=== PATIENT | female | born 1980 | race Caucasian/White ===

== ENCOUNTER → 2021-01-20 | Outpatient (CLI) | payer BC ==
[~2021-01-20] MED LIST: ALBU90OI INH; ALBU90OI61 INH; ASPI81CH PO; BCP'S; CITA20 PO; CYCL10 PO; DIGO.125 PO; FURO20; HYDACE5 PO; IBUP800 PO; METO50 PO; MONT10T PO; MULT50FEL PO; NAPR550 PO; OXYACE5T PO; OXYC5; PENVK500 PO; POTCHL20ER; RXCYCL10 PO; RXNAPNA550 PO; RXOXYACE PO; SENN187 PO; Singulair10 MG; TRAM50 PO; WARF2.5 PO
[2021-01-20 18:21] LABS: Adenovirus F 40/41 Not Detected (NOT DETECT); Astrovirus Not Detected (NOT DETECT); Campylobacter Sp Not Detected (NOT DETECT); Cryptosporidium Not Detected (NOT DETECT); Cyclospora Cayetanensis Not Detected (NOT DETECT); E. Coli O157 Not Detected (NOT DETECT); Entamoeba Histolytica Not Detected (NOT DETECT); Enteroaggregative E. coli-EAEC Not Detected (NOT DETECT); Enteropathogenic E. coli-EPEC Not Detected (NOT DETECT); Enterotoxigenic E. coli-ETEC Not Detected (NOT DETECT); Giardia Lamblia Not Detected (NOT DETECT); Norovirus GI/GII Not Detected (NOT DETECT); Plesiomonas Shigelloides Not Detected (NOT DETECT); Rotavirus A Not Detected (NOT DETECT); Salmonella Sp Not Detected (NOT DETECT); Sapovirus Not Detected (NOT DETECT); Shiga Toxin-prod E. coli-STEC Not Detected (NOT DETECT); Shigella/Enteroin E. coli-EIEC Not Detected (NOT DETECT); Vibrio Cholerae Not Detected (NOT DETECT); Vibrio Sp Not Detected (NOT DETECT); Yersinia Enterocolitica Not Detected (NOT DETECT)
== END | disposition home or self-care (01) ==
LOC: LAB 13:18 → LAB SHORT 13:18
PROVIDERS: Physician Assistant
DX: R19.7 Diarrhea, unspecified (principal)
CPT/HCPCS: 0097U

== ENCOUNTER 2022-10-16 15:36 | Inpatient (IN) | payer OTHER ==
[~2022-10-16] VITALS: Ht 157.5 cm; Wt 114.4 kg
[~2022-10-16 15:36] MED LIST changes: -ALBU90OI61 INH; +METO100 PO; -METO50 PO; -Singulair10 MG
[2022-10-16 16:31] LABS: BASOPHILS ABSOLUTE AUTO 0.04 K/mm3 (0.00-0.23); BASOPHILS PERCENT AUTO 0 % (0-2); EOSINOPHILS ABSOLUTE AUTO 0.14 K/mm3 (0.00-0.68); EOSINOPHILS PERCENT AUTO 1 % (0-6); Hemoglobin 13.1 g/dL (11.5-16.0); IMMATURE GRAN ABSOLUTE AUTO 0.04 K/mm3 (0.00-0.10); IMMATURE GRAN PERCENT AUTO 0 % (0-1); LYMPHOCYTES ABSOLUTE AUTO 1.95 K/mm3 (0.84-5.20); LYMPHOCYTES PERCENT AUTO 19 % (21-46); MONOCYTES ABSOLUTE AUTO 0.38 K/mm3 (0.16-1.47); MONOCYTES PERCENT AUTO 4 % (4-13); Mean Corpuscular HGB 29.7 pg (26.0-34.0); Mean Corpuscular HGB Conc 33.6 g/dL (31.5-36.5); Mean Corpuscular Volume 88 fL (80-100); Mean Platelet Volume 10.4 fL (9.1-12.4); NEUTROPHILS ABSOLUTE AUTO 7.68 K/mm3 (1.96-9.15); NEUTROPHILS PERCENT AUTO 75 % (41-73); Platelet Count 298 K/mm3 (150-400); RDW Coefficient Variation 14.5 % (11.7-14.2); RDW Standard Deviation 46.8 fL (35.1-46.3); Red Blood Cell Count 4.41 M/mm3 (3.80-5.20); White Blood Cell Count 10.23 K/mm3 (4.00-11.30)
[2022-10-16 16:52] LABS: Albumin, Blood 3.6 g/dL (3.4-5.0); Albumin/Globulin Ratio 0.9 (0.8-1.8); Bilirubin, Total 0.3 mg/dL (0.1-1.0); Bun/Creatinine Ratio 17.9 (12.0-20.0); Calcium, Blood 9.2 mg/dL (8.5-10.1); Creatinine, Blood 1.12 mg/dL (0.40-1.00); Globulin, Blood 3.9 g/dL (2.2-4.0); Total Protein, Blood 7.5 g/dL (6.4-8.2)
[2022-10-16] MEDS ORDERED: LOSARTAN POTAS100 M1 PO (17:30)
[2022-10-16] MEDS ORDERED: ZOLOFT50 MG PO (21:36)
[2022-10-16 22:14] LABS: Anti-Xa UFH, PHA Monitoring <0.10 IU/mL; International Normalized Ratio 0.99; Prothrombin Time Results 10.4 Sec (9.7-11.5)
[2022-10-16 23:15] VITALS: BP 113/71
[2022-10-16] MEDS ORDERED: Aspir 8181 MG PO (23:51)
[2022-10-16] MEDS ORDERED: MULVITA PO (23:52)
[2022-10-16 23:56] VITALS: BP 106/82
[2022-10-17] VITALS (16 sets, daily range): BP systolic 91–122; BP diastolic 49–83
--- NOTE | 2022-10-17 01:41 | NUR ---
Assumed care of pt at 2310 as an ER admit. SVT on tele 160-180. CP described as sharp 07/13. BP began getting soft with SBP 90-100. Attempted valsalva maneuver and dive reflex with no success. Resident in room and attempted carotid massage, also with no success. Adenosine 6mg ordered and administered at 0108, patient converted to NSR in the 80's. Patient's MAP in high 70's now, and patient is resting.
[2022-10-17 02:09] LABS: BASOPHILS ABSOLUTE AUTO 0.03 K/mm3 (0.00-0.23); BASOPHILS PERCENT AUTO 0 % (0-2); EOSINOPHILS ABSOLUTE AUTO 0.16 K/mm3 (0.00-0.68); EOSINOPHILS PERCENT AUTO 2 % (0-6); Hematocrit 34.5 % (33.0-51.0); Hemoglobin 11.4 g/dL (11.5-16.0); IMMATURE GRAN ABSOLUTE AUTO 0.04 K/mm3 (0.00-0.10); IMMATURE GRAN PERCENT AUTO 0 % (0-1); LYMPHOCYTES PERCENT AUTO 23 % (21-46); MONOCYTES ABSOLUTE AUTO 0.54 K/mm3 (0.16-1.47); MONOCYTES PERCENT AUTO 5 % (4-13); Mean Corpuscular HGB 29.1 pg (26.0-34.0); Mean Corpuscular Volume 88 fL (80-100); Mean Platelet Volume 10.1 fL (9.1-12.4); NEUTROPHILS ABSOLUTE AUTO 7.43 K/mm3 (1.96-9.15); NEUTROPHILS PERCENT AUTO 69 % (41-73); Platelet Count 258 K/mm3 (150-400); RDW Coefficient Variation 14.4 % (11.7-14.2); RDW Standard Deviation 46.3 fL (35.1-46.3); Red Blood Cell Count 3.92 M/mm3 (3.80-5.20)
[2022-10-17 02:27] LABS: Alanine Aminotransfer (ALT/SGP 16 U/L (12-78); Albumin, Blood 3.2 g/dL (3.4-5.0); Albumin/Globulin Ratio 0.9 (0.8-1.8); Alk Phos 63 U/L (50-136); Anion Gap 4 mmol/L (6-16); Aspartate Aminotrans (AST/SGOT 14 U/L (12-37); Bilirubin, Total 0.6 mg/dL (0.1-1.0); Blood Urea Nitrogen 21 mg/dL (8-24); CHOL/HDL RATIO 3.7; CO2, Blood 24 mmol/L (21-32); Calcium, Blood 8.9 mg/dL (8.5-10.1); Chloride, Blood 109 mmol/L (98-108); Cholesterol 112 mg/dL (50-200); Globulin, Blood 3.7 g/dL (2.2-4.0); Glomerular Filtration Rate 72 (60-); Glucose, Blood 143 mg/dL (70-99); HDL Cholesterol 30 mg/dL (>39); Low Density Lipoprotein Chol 59 mg/dL (0-110); Potassium, Blood 3.4 mmol/L (3.5-5.5); Sodium, Blood 137 mmol/L (136-145); Total Protein, Blood 6.9 g/dL (6.4-8.2); Triglycerides 113 mg/dL (30-160); Very Low Density Lipoprot Chol 22 mg/dL (6-32)
--- NOTE | 2022-10-17 02:51 | NUR ---
Patient returned into SVT rhythm in 140's with soft BP's. Called resident and order for 6mg Adenosine again, given and patient returned into SR in 70's with stable BP.
[2022-10-17 03:23] LABS: Magnesium, Blood 1.7 mg/dL (1.6-2.4)
--- NOTE | 2022-10-17 04:54 | NUR ---
Patient was able to get some sleep this shift. Patient had 1 medium loose brown watery BM that patient reports has been happening for awhile now. No other events this shift. VSS at this time. Will report to dayshift RN.
--- NOTE | 2022-10-17 09:00 | NUR ---
Am note Pt alert, oriented x4; calm and cooperative with care. Pt resting in bed, appears to be sleeping intermittently. Sba to bsc. Pt denies pain, chest pain/pressure, sob, nausea, dizziness and numb/tingling. Tele sinus kimberly 57-60's, bp stable. Spo2 >90% on ra, breathing even and unlabored. Abd soft, nontender, normoactive, pt reporting intermittent diarrhea. No edema noted. Other vss. No other acute changes noted. Will continue to monitor.
--- NOTE | 2022-10-17 17:22 | NUR ---
Shift Summary Pt had panic attack this afternoon, medicated per emar. Pt reports sharp intermittent chest pain, md aware, continue to monitor. Bp soft this evening, caregiver states that is baseline. Other vss. No other acute chagnes noted. Will continue to monitor.
--- NOTE | 2022-10-17 17:30 | NUR ---
Shift Summary Pt reporting sharp left side pain, notified MD, continue to monitor. Plans for stress test tomorrow, npo at midnight. No other acute chagnes noted. Will continue to monitor.
[2022-10-18] VITALS (8 sets, daily range): BP systolic 95–143; BP diastolic 49–79
[2022-10-18 03:28] LABS: BASOPHILS ABSOLUTE AUTO 0.05 K/mm3 (0.00-0.23); BASOPHILS PERCENT AUTO 1 % (0-2); EOSINOPHILS ABSOLUTE AUTO 0.22 K/mm3 (0.00-0.68); EOSINOPHILS PERCENT AUTO 2 % (0-6); Hematocrit 33.1 % (33.0-51.0); Hemoglobin 10.7 g/dL (11.5-16.0); IMMATURE GRAN ABSOLUTE AUTO 0.03 K/mm3 (0.00-0.10); IMMATURE GRAN PERCENT AUTO 0 % (0-1); LYMPHOCYTES ABSOLUTE AUTO 2.39 K/mm3 (0.84-5.20); LYMPHOCYTES PERCENT AUTO 25 % (21-46); MONOCYTES ABSOLUTE AUTO 0.46 K/mm3 (0.16-1.47); MONOCYTES PERCENT AUTO 5 % (4-13); Mean Corpuscular HGB Conc 32.3 g/dL (31.5-36.5); Mean Corpuscular Volume 90 fL (80-100); NEUTROPHILS ABSOLUTE AUTO 6.61 K/mm3 (1.96-9.15); NEUTROPHILS PERCENT AUTO 68 % (41-73); Platelet Count 246 K/mm3 (150-400); RDW Coefficient Variation 14.3 % (11.7-14.2); RDW Standard Deviation 47.1 fL (35.1-46.3); Red Blood Cell Count 3.69 M/mm3 (3.80-5.20); White Blood Cell Count 9.76 K/mm3 (4.00-11.30)
[2022-10-18 03:44] LABS: Albumin, Blood 3.1 g/dL (3.4-5.0); Albumin/Globulin Ratio 0.9 (0.8-1.8); Bilirubin, Total 0.5 mg/dL (0.1-1.0); Bun/Creatinine Ratio 28.2 (12.0-20.0); Calcium, Blood 8.5 mg/dL (8.5-10.1); Creatinine, Blood 0.85 mg/dL (0.40-1.00); Globulin, Blood 3.6 g/dL (2.2-4.0); Total Protein, Blood 6.7 g/dL (6.4-8.2)
--- NOTE | 2022-10-18 04:47 | NUR ---
SHIFT SUMMARY PT IS A/Ox4 AND IS COOPERATIVE WITH CARE PROVIDED BY MEMBERS OF STAFF. ANSWERS QUESTIONS APPROPRIATELY AMD ABLE TO MAKE HER NEEDS KNOWN. NO ACUTE EVENTS OVERNIGHT FOR PT WAS ABLE TO SLEEP T/O MOST OF THE SHIFT. REMAINED IN SR WITH HR RANGING IN 60-70'S AT REST, BUT DOES CLIMB INTO 90'S WITH ABULATION. NO EPISODES OF SVT DURING MY SHIFT OF THIS NOTE. NO REPORTS OF CP OR PRESSURE REPORTED. MAINTAINS SPO2 >92% ON RA WITH NO SOB OR DYSPNEA REPORTED. ABLE TO AMBULATE TO BS TO VOID. HAS BEEN NPO SINCE MDN FOR SECOND PORTION OF STRESS TEST THIS AM. NO NEW ORDERS AT THIS TIME, WILL REPORT TO DAYSLAMURIEL RN. ELROY NORMAN T/O THE SHIFT
--- NOTE | 2022-10-18 08:25 | NUR ---
AM NOTE PT RESTING IN ROOM, HEPARIN VERIFIED WITH, PM NURSE, AND AM NURSE. PT'S HR ELEVATED UPON WAKING IN THE 130'S SINUS TACHYCARDIA PER [employer]. HR RETURNED TO NSR IN 70'S AFTER APPROXIMATELY 20 MINUTES. PT DENIES CP, SOB, DIZZINESS, NAUSEA. PT MEDICATED PER EMAR. WILL BE COMPLETING AN EXERCISE INDUCED STRESS TEST TIME 1300. PT DENIES ANY NEEDS AT THIS TIME.
--- NOTE | 2022-10-18 13:52 | NUR ---
PROGRESS PT TO IMAGING FOR STRESS TEST.
--- NOTE | 2022-10-18 16:42 | NUR ---
SHIFT SUMMARY PT REMAINS A&OX4. DENIES CP, SOB, DIZZINESS, AND NAUSEA. PT WILL RECIEVE THE SECOND PART OF THE STRESS TEST TOMORROW. VSS. DENIES FURTHER NEEDS AT THIS TIME, WILL CONTINUE TO MONITOR PT.
--- NOTE | 2022-10-18 18:46 | NUR ---
I have reviewed the nursing students documentation and am in agreement
[2022-10-19 04:16] VITALS: BP 142/88
[2022-10-19 04:37] LABS: Hematocrit 29.7 % (33.0-51.0); Mean Corpuscular HGB 29.6 pg (26.0-34.0); Mean Corpuscular HGB Conc 33.7 g/dL (31.5-36.5); Mean Corpuscular Volume 88 fL (80-100); Mean Platelet Volume 10.1 fL (9.1-12.4); Platelet Count 247 K/mm3 (150-400); RDW Coefficient Variation 14.2 % (11.7-14.2); RDW Standard Deviation 45.8 fL (35.1-46.3); Red Blood Cell Count 3.38 M/mm3 (3.80-5.20); White Blood Cell Count 10.63 K/mm3 (4.00-11.30)
[2022-10-19 05:18] LABS: Bun/Creatinine Ratio 23.1 (12.0-20.0); Calcium, Blood 8.6 mg/dL (8.5-10.1); Creatinine, Blood 0.87 mg/dL (0.40-1.00); Potassium, Blood 3.8 mmol/L (3.5-5.5)
[2022-10-19 07:54] VITALS: BP 134/86
--- NOTE | 2022-10-19 08:10 | NUR ---
SHIFT SUMMARY PT IS A/Ox4 AND COOPERATIVE WITH CARE PROVIDED BY MEMBERS OF STAFF. ANSWERS QUESTIONS APPROPRIATELY AND ABLE TO MAKE NEEDS KNOWN. NO ACUTE EVENTS OVER NIGHT FOR PT WAS ABLE T0 SLEEP T/O MOST OF THE SHIFT. MAINTAINS SPO2 >95% ON RA WITH NO SOB REPORTED. CARDIAC VAUGHN, REMAINS IN SR-ST WITH HR RANGING IN THE 80-100'S. SBP REMAINS STABLE T/O THE NIGHT. ABLE TO ABULATE TO BATHROOM WITH SBA. HEPARIN GTT RUNNING T/O THE NIGHT ORDERED VIA EMAR. PT TO CONDUCT SECOND PART OF STRESS TEST THIS AM, PT HAS BEEN NPO SINCE MDN. NO NEW ORDERS AT THIS TIME, WILL REPORT TO ONCOMING RN. ELROY NORMAN T/O THE SHIFT.
--- NOTE | 2022-10-19 10:43 | NUR ---
ASSUMPTION OF CARE: RECEIVED REPORT FROM JB FISHER RN AT APPROX. 0715. PT ALERT AND ORIENTED X4, ABLE TO ANSWER QUESTIONS APPROPRIATELY. PT HEPARIN GTT AT 21 U/KG/HR VERIFIED BY JB FISHER RN AND YASEMIN RN. PT LUNG SOUNDS CLEAR IN ALL LOBES. NO C/O CHEST PAIN OR PRESSURE. PT ABLE TO AMBULATE TO BATHROOM WITH MINIMAL ASSIST WITH NO C/O OF DIZZINESS OR LIGHTHEADNESS. PT VSS. PLAN FOR THE OTHER HALF OF STRESS TEST THIS AFTERNOON. WILL CONTINUE TO MONITOR T/O SHIFT. CALL LIGHT IN REACH, BED IN LOW POSITION.
[2022-10-19 11:19] VITALS: BP 118/66
[2022-10-19 16:04] VITALS: BP 119/60
--- NOTE | 2022-10-19 17:24 | NUR ---
SHIFT SUMMARY: PT WENT FOR THE OTHER HALF OF STRESS TEST THIS AFTERNOON. CARDIOLOGY CONSULT PLACED TO DR. HEALY AND REVIEWED STRESS TEST RESULT. METOPROLOL DOSE DECREASED TO 50 MG PER , DOSE GIVEN AT 1700. PT VITAL SIGNS STABLE WITH HR IN THE 60-70'S AND BP SYSTOLIC IN THE 110-120'S. OXYGEN CONTINUED TO STAY >94 T/O THE SHIFT ON ROOM AIR. NO C/O OF CHEST PAIN OR PRESSURE T/O THE SHIFT. ABLE TO AMBULATE TO THE BATHROOM INDEPENDENTLY WITH NO C/O DIZZINESS OR LIGHTHEADEDNESS. PLAN TO MONITOR THE PT OVERNIGHT WITH POSSIBLE D/C HOME TOMORROW. CALL LIGHT IN REACH, WILL CONTINUE TO MONITOR AND GIVE REPORT TO THE ONCOMING NOC RN.
--- NOTE | 2022-10-19 18:11 | NUR ---
THIS RN REVIEWED AGREED TO STUDENTS NOTES AND DOCUMENTION.
[2022-10-19 19:27] VITALS: BP 112/67
[2022-10-19 23:39] VITALS: BP 115/61
[2022-10-20 04:01] VITALS: BP 139/72
[2022-10-20 04:14] LABS: BASOPHILS ABSOLUTE AUTO 0.08 K/mm3 (0.00-0.23); BASOPHILS PERCENT AUTO 1 % (0-2); EOSINOPHILS ABSOLUTE AUTO 0.31 K/mm3 (0.00-0.68); EOSINOPHILS PERCENT AUTO 3 % (0-6); Hematocrit 29.7 % (33.0-51.0); Hemoglobin 9.8 g/dL (11.5-16.0); IMMATURE GRAN ABSOLUTE AUTO 0.05 K/mm3 (0.00-0.10); IMMATURE GRAN PERCENT AUTO 1 % (0-1); LYMPHOCYTES ABSOLUTE AUTO 2.64 K/mm3 (0.84-5.20); LYMPHOCYTES PERCENT AUTO 25 % (21-46); MONOCYTES PERCENT AUTO 5 % (4-13); Mean Corpuscular HGB 29.3 pg (26.0-34.0); Mean Corpuscular Volume 89 fL (80-100); Mean Platelet Volume 10.2 fL (9.1-12.4); NEUTROPHILS ABSOLUTE AUTO 7.21 K/mm3 (1.96-9.15); NEUTROPHILS PERCENT AUTO 67 % (41-73); Platelet Count 271 K/mm3 (150-400); RDW Coefficient Variation 14.3 % (11.7-14.2); RDW Standard Deviation 45.6 fL (35.1-46.3); Red Blood Cell Count 3.35 M/mm3 (3.80-5.20); White Blood Cell Count 10.79 K/mm3 (4.00-11.30)
[2022-10-20 04:30] LABS: Bun/Creatinine Ratio 21.9 (12.0-20.0); Calcium, Blood 8.5 mg/dL (8.5-10.1); Creatinine, Blood 0.87 mg/dL (0.40-1.00); Potassium, Blood 3.7 mmol/L (3.5-5.5)
--- NOTE | 2022-10-20 05:52 | NUR ---
SHIFT SUMMARY PT IS A/Ox4 AND COOPERATIVE WITH CARE PROVIDED BY MEMBERS OF STAFF. ANSWERS QUESTIONS APPROPRIATELY AND ABLE TO MAKE NEEDS KNOWN. NO ACUTE EVENTS OVERNIGHT FOR PT WAS ABLE TO SLEEP FOR MOST OF THE SHIFT. CARDIAC VAUGHN, NO C/O CP OR PRESSURE T/O THE NIGHT. REMAINED SR WITH HR RANGING IN THE 60-80'S. HR CAN CLIMB TO 100'S INTERMITTENTLY WHEN PT IS ABLULATING. MAINTAINS SPO2 >95% ON RA WITH NO SOB OR DYSPNEA REPORTED. ABLE TO ABULATE TO BATHROOM INDEPENDLY WITH NO COMPLAINTS OF LIGHTHEADNESS OR DIZZYNESS REPORTED. POSSIBLE DC TODAY AFTER FINAL FOLLOW UP WITH CARDIOLOGY THIS AM. NO NEW ORDERS AT THIS TIME, WILL REPORT TO ONCOMING RN.
[2022-10-20 07:21] VITALS: BP 129/67
--- NOTE | 2022-10-20 07:47 | NUR ---
AM NOTE: RECEIVED REPORT FROM NOC SHIFT RN AT 0715. PT ALERT AND ORIENTED X4, ABLE TO ANSWER QUESTIONS APPROPRIATELY AND MAKE NEEDS KNOWN. PT HAS CLEAR BREATH SOUNDS IN ALL LOBES. PT IN SINUS RYTHM WITH RATE IN THE 80'S-90'S WITH NO C/O CHEST PAIN/PRESSURE OR SOB. PT ABLE TO AMBULATE TO THE BATHROOM AND SHOWER INDEPENDENTLY WITH NO DIZZINESS OR LIGHTHEADEDNESS. CALL LIGHT IN REACH, WILL CONTINUE TO MONITOR THROUGHOUT THE SHIFT.
[2022-10-20 11:13] VITALS: BP 115/66
[2022-10-20] MEDS ORDERED: METO50ER PO (12:58)
[2022-10-20] MEDS ORDERED: ATOR40TA PO (13:01)
[2022-10-20] MEDS ORDERED: NITR.4SL SL (13:03)
[2022-10-20] MEDS ORDERED: VERA240ER PO (13:04)
--- NOTE | 2022-10-20 13:46 | NUR ---
DISCHARGE SUMMARY: PT DISCHARGED TO HOME WITH . SHE WAS GIVEN INSTRUCTIONS TO FOLLOW UP WITH HER PCP AND CARDIOLOGY AND TO RETURN TO THE ER IF ANY PROBLEMS PERSIST. PT TOOK ALL BELONGINGS WITH HER AND WAS GIVEN A WHEELCHAIR RIDE TO HER CAR. PRESCRIPTIONS SENT TO [facility].
== END 2022-10-20 13:32 | disposition home or self-care (01) | DRG 282 ==
LOC: ER 15:36 → PCU 15:37
PROVIDERS: Emergency Medicine; Family Medicine; Student in an Organized Health Care Education/Training Program; ADMIT Internal Medicine
DX: I47.1 Supraventricular tachycardia (principal); I21.A1 Myocardial infarction type 2; I45.89 Other specified conduction disorders; F41.8 Other specified anxiety disorders; E87.6 Hypokalemia; I10 Essential (primary) hypertension; J45.909 Unspecified asthma, uncomplicated; T46.1X5A Adverse effect of calcium-channel blockers, initial encounter; I95.9 Hypotension, unspecified; D50.9 Iron deficiency anemia, unspecified; Z88.8 Allergy status to other drugs, medicaments and biological substances; Z91.040 Latex allergy status; Z79.82 Long term (current) use of aspirin; Z79.899 Other long term (current) drug therapy; Z98.890 Other specified postprocedural states; Z95.828 Presence of other vascular implants and grafts; Z79.51 Long term (current) use of inhaled steroids; Z79.2 Long term (current) use of antibiotics; Z79.891 Long term (current) use of opiate analgesic; Z90.49 Acquired absence of other specified parts of digestive tract
CPT/HCPCS: 36415; 71045; 78452; 80048; 80053; 80061; 83735; 84443; 84484; 85025; 85027; 85520; 85610; 93005; 93010; 93017; 93306; 94760; 94762; 96374; 96375; 96376; 99285-25; A9270; A9500; C1751; G0378; J0153; J0280; J1644; J2785; J3475; J3480

== ENCOUNTER 2023-01-20 00:26 | Emergency (ER) | payer OTHER ==
[~2023-01-20] VITALS: Ht 157.5 cm; Wt 111.1 kg
[~2023-01-20 00:26] MED LIST changes: +ATOR40TA PO; +Aspir 8181 MG PO; +LOSARTAN POTAS100 M1 PO; +METO50ER PO; +MULVITA PO; +NITR.4SL SL; +VERA240ER PO; +ZOLOFT50 MG PO
[2023-01-20 00:51] LABS: BASOPHILS ABSOLUTE AUTO 0.07 K/mm3 (0.00-0.23); BASOPHILS PERCENT AUTO 1 % (0-2); EOSINOPHILS PERCENT AUTO 2 % (0-6); Hematocrit 40.8 % (33.0-51.0); Hemoglobin 13.1 g/dL (11.5-16.0); IMMATURE GRAN ABSOLUTE AUTO 0.03 K/mm3 (0.00-0.10); IMMATURE GRAN PERCENT AUTO 0 % (0-1); LYMPHOCYTES ABSOLUTE AUTO 3.16 K/mm3 (0.84-5.20); LYMPHOCYTES PERCENT AUTO 29 % (21-46); MONOCYTES ABSOLUTE AUTO 0.58 K/mm3 (0.16-1.47); MONOCYTES PERCENT AUTO 5 % (4-13); Mean Corpuscular HGB 26.8 pg (26.0-34.0); Mean Corpuscular HGB Conc 32.1 g/dL (31.5-36.5); Mean Corpuscular Volume 83 fL (80-100); Mean Platelet Volume 9.9 fL (9.1-12.4); NEUTROPHILS ABSOLUTE AUTO 6.91 K/mm3 (1.96-9.15); NEUTROPHILS PERCENT AUTO 63 % (41-73); Platelet Count 311 K/mm3 (150-400); RDW Coefficient Variation 14.2 % (11.7-14.2); RDW Standard Deviation 43.1 fL (35.1-46.3); Red Blood Cell Count 4.89 M/mm3 (3.80-5.20); White Blood Cell Count 10.95 K/mm3 (4.00-11.30)
[2023-01-20 01:19] LABS: Albumin, Blood 3.4 g/dL (3.4-5.0); Albumin/Globulin Ratio 0.8 (0.8-1.8); Bilirubin, Total 0.7 mg/dL (0.1-1.0); Bun/Creatinine Ratio 11.4 (12.0-20.0); Calcium, Blood 9.2 mg/dL (8.5-10.1); Creatinine, Blood 0.88 mg/dL (0.40-1.00); Globulin, Blood 4.2 g/dL (2.2-4.0); Potassium, Blood 4.1 mmol/L (3.5-5.5); Total Protein, Blood 7.6 g/dL (6.4-8.2)
[2023-01-20 04:00] VITALS: BP 128/92
== END 2023-01-20 04:10 | disposition home or self-care (01) ==
LOC: ER 00:26
PROVIDERS: Emergency Medicine
DX: I47.1 Supraventricular tachycardia (principal); I25.2 Old myocardial infarction; J45.909 Unspecified asthma, uncomplicated; F32.A Depression, unspecified; F41.9 Anxiety disorder, unspecified; Z88.6 Allergy status to analgesic agent; Z91.040 Latex allergy status; Z79.899 Other long term (current) drug therapy; Z79.82 Long term (current) use of aspirin
CPT/HCPCS: 80053; 85025; 93005; 93010; A9270; J0153; J7030